=== PATIENT | female | born 1965 | race Caucasian/White ===

== ENCOUNTER → 2016-09-01 | Outpatient (CLI) | payer BC ==
[~2016-09-01] MED LIST: NIRAVAM; PRED20TA PO
--- NOTE | 2016-09-01 15:11 | MAMMOGRAPHY REPORT ---
UNILATERAL LEFT DIGITAL DIAGNOSTIC MAMMOGRAM TOMOSYNTHESIS AND TARGETED LEFT ULTRASOUND: 09/01/2016 CLINICAL HISTORY: 51-year-old woman called back from screening mammography for a 6 mm nodular asymme try and 7 mm lobulated mass in the left breast. TECHNIQUE: Spot compression left CC and MLO 2-D digital and tomosynthesis images were obtained. The left MLO view is mislabeled as left CC. COMPARISON: Comparison is made to exams dated: 08/21/2016 mammogram, 08/20/2015 mammogram, 08/14/20 13 mammogram, 08/17/2014 mammogram, 01/13/2012 ultrasound, and 12/24/2010 mammogram - [facility]. BREAST COMPOSITION: There are scattered areas of fibroglandular density in the left breast. FINDINGS: The spot compression CC view of the left breast including tomosynthesis images demonstrate s partial effacement of the 6 mm nodular asymmetry along the posterior nipple line. There is persis tence of a circumscribed oval 7.4 x 3.9 mm mass in the lateral anterior breast. No focal architectu ral distortion or cluster of suspicious microcalcifications. There is a stable susy-shaped metallic biopsy marker in the anterior left breast pain Real-time high-resolution ultrasound was performed in the lateral left breast including the 12:00 an d 6:00 axes. In the 12:00 axis, 27 m from the nipple, there is a microlobulated oval hypoechoic mas s which could represent a Kum[place] located cyst, focal duct ectasia or a normal fat lobule. This measu res 4.2 x 2.0 x 4.6 mm. There is an oval circumscribed anechoic cyst in the 12:30 left breast, 1 cm from the nipple, measuring 5.6 x 2.9 x 6.1 mm. This may possibly correlate with the circumscribed oval mammographic mass. In the 5:00 left breast, 3 cm from the nipple, another oval circumscribed a nechoic cystic appearing mass is identified measuring 4.6 x 2.2 x 2.3 mm. No suspicious solid mass is seen. IMPRESSION: ACR-BI-RADS CATEGORY 3: PROBABLY BENIGN, TARGETED ULTRASOUND ACR-BI-RADS CATEGORY 3: NM OBABLY BENIGN There are scattered cysts and possible duct ectasia within the left breast on ultrasound. One of th e cysts is thought to correlate with the persistent circumscribed oval mammographic mass in the late ral anterior breast. Overall, these findings most likely represent benign fibrocystic changes and t here is no evidence of a suspicious sonographic mass. Nevertheless, a short interval follow-up left mammogram including tomosynthesis images and repeat targeted ultrasound is recommended to ensure st ability in 6 months. These results and recommendations were discussed with the patient at the time of the exam. Approximately 10% of breast cancers are not detected with mammography. A negative mammographic repor t should not delay biopsy if a clinically suggestive mass is present. Valerie King M.D. ay/:09/01/2016 10:56:13 [employer] Software Developer: Pricila ACEVEDO(Kerri)(M), [facility] letter sent: Follow Up Recommended 3 BI-RADS Code: ACR-BI-RADS Category 3: Probably Benign Ultrasound BI-RADS: ACR-BI-RADS Category 3: P robably Benign
== END | disposition home or self-care (01) ==
LOC: C.MAMM 08:25
PROVIDERS: ATTEND Obstetrics & Gynecology
DX: R92.8 Other abnormal and inconclusive findings on diagnostic imaging of breast (principal); N63 Unspecified lump in breast

== ENCOUNTER → 2017-03-01 | Outpatient (CLI) | payer BC ==
--- NOTE | 2017-03-01 12:37 | MAMMOGRAPHY REPORT ---
UNILATERAL LEFT DIGITAL DIAGNOSTIC MAMMOGRAM TOMOSYNTHESIS WITH CAD AND TARGETED LEFT ULTRASOUND: 03/01 CLINICAL HISTORY: 51-year-old woman following up for left breast mammographic nodular asymmetries tho ught to correlate with cysts and fibrocystic changes on ultrasound. She has a history of prior benig n stereotactic biopsy in the left breast. TECHNIQUE: Left breast tomosynthesis in addition to standard 2D mammography was performed. A spot co mpression left CC view 2-D digital and tomosynthesis images were also obtained. Current study was al so evaluated with a Computer Aided Detection (CAD) system. COMPARISON: Comparison is made to exams dated: 09/01/2016 ultrasound, 09/01/2016 mammogram, 08/21/2016 m ammogram, 08/20/2015 mammogram, 08/17/2014 mammogram, and 09/05/2013 ultrasound - [facility]. BREAST COMPOSITION: There are scattered areas of fibroglandular density in the left breast. FINDINGS: There is a stable susy-shaped metallic biopsy marker in the lower inner quadrant of the left breast. A previously observed 6.4 x 4.1 mm oval circumscribed mass in the lateral middle one third of the left breast, and a 5.3 mm nodular asymmetry in the slightly medial middle one third of the lef t breast are no longer identified. This confirms benign fluctuating cysts or overlapping fibroglandu lar tissue. There is an increasingly conspicuous 4.2 mm nodular asymmetry in the posterior left rebeca st, 6.3 cm distal to the nipple along the posterior nipple line on the CC view. This is not identifi ed on the MLO view. An additional spot compression view was obtained in this area which demonstrates partial effacement of the nodular asymmetry suggesting it could represent a tortuous blood vessel. No focal area of architectural distortion or new suspicious mass or calcifications are identified. Targeted ultrasound was performed in the left breast 11:00 through 1:00, retroareolar and 5:00 throug h 7:00 axes. In the 6:00 left breast, 1 cm from the nipple, there is a small anechoic cyst versus 2 abutting cysts measuring 3.9 x 1.7 x 3.9 mm in conglomerate. In the 12:00 left breast, 2 cm from the nipple, an oval parallel circumscribed isoechoic benign appearing mass versus normal fat lobule is a gain seen in the 12:00 left breast, 2 cm from the nipple, measuring 3.7 x 1.6 x 4.2 mm. This previou sly measured 4.2 x 2.0 x 4.6 mm and is unchanged. No other suspicious solid or cystic mass is seen, including within the retroareolar left breast. IMPRESSION: ACR-BI-RADS CATEGORY 3: PROBABLY BENIGN, TARGETED ULTRASOUND ACR-BI-RADS CATEGORY 3: PRO BABLY BENIGN 1. Nodular asymmetries and circumscribed masses in the left breast middle to anterior depth have decr eased and fluctuated comparing to the prior mammograms, confirming benignity. However, there is an i ncreasingly conspicuous 4 mm nodular asymmetry in the posterior left breast, along the posterior nipp le line on the CC view without suspicious sonographic correlate. Although this could represent a tor tuous vessel or benign cyst, another short interval follow-up diagnostic left mammogram and possible repeat ultrasound is recommended to ensure stability in 6 months. 2. A benign-appearing isoechoic mass versus fat lobule in the 12:00 left breast, 2 cm from the nippl e is unchanged in size and appearance compared to the prior ultrasound. Another six-month targeted l eft breast ultrasound is recommended to ensure at least one year of stability. Annual right mammogra phy will also be due at that time. These results and recommendations were discussed with the patient at the time of the exam. Approximately 10% of breast cancers are not detected with mammography. A negative mammographic report should not delay biopsy if a clinically suggestive mass is present. Valerie King M.D. ay/:03/01/2017 12:23:15 Lifeguard: Alma Delia ACEVEDO(Kerri)(M), [facility] letter sent: Follow Up Recommended 3 BI-RADS Code: ACR-BI-RADS Category 3: Probably Benign Ultrasound BI-RADS: ACR-BI-RADS Category 3: Pr obably Benign
== END | disposition home or self-care (01) ==
LOC: C.MAMM 10:19
PROVIDERS: ATTEND Obstetrics & Gynecology
DX: N64.89 Other specified disorders of breast (principal); N63 Unspecified lump in breast

== ENCOUNTER → 2017-09-02 | Outpatient (CLI) | payer BC ==
--- NOTE | 2017-09-02 12:47 | MAMMOGRAPHY REPORT ---
BILATERAL DIGITAL DIAGNOSTIC MAMMOGRAM TOMOSYNTHESIS WITH CAD AND TARGETED LEFT ULTRASOUND: 09/02/2017 CLINICAL HISTORY: Six-month follow-up of the left breast. Due for routine mammography of the right b reast. The patient reports no current complaints. TECHNIQUE: Breast tomosynthesis in addition to standard 2D mammography was performed. Current study was also evaluated with a Computer Aided Detection (CAD) system. Bilateral CC and MLO 2-D and tomosy nthesis images were obtained. COMPARISON: Comparison is made to exams dated: 03/01/2017 ultrasound, 03/01/2017 mammogram, 09/01/2016 jocelyn mogram, 08/21/2016 mammogram, 09/01/2016 ultrasound, and 08/20/2015 mammogram - [facility]. BREAST COMPOSITION: There are scattered areas of fibroglandular density in both breasts. FINDINGS: There are no suspicious masses, calcifications, or areas of architectural distortion noted in either breast. There has been no significant interval change compared to prior exams. Small flu ctuating circumscribed benign-appearing masses are again noted bilaterally, which are considered dalton gn given the multiplicity and bilaterality and likely represent cysts. Pressure circumscribed and pa rtially obscured 6 mm mass in the right retroareolar breast posteriorly on the cc view is stable comp ared to prior exams including the August 2013 exam and likely represents a cyst. A biopsy marker cl ip is again noted within the left lower inner quadrant. Targeted ultrasound was performed of the area of the previously seen left breast mass. In the left b reast at 12:00, 2 cm from the nipple, again noted is an oval parallel circumscribed isoechoic benign- appearing 4 x 4 x 2 mm mass. This is stable dating back to at least the August 2016 exam and is con sidered benign given the morphology and stability. 2 adjacent benign simple cysts measuring 2 and 1 mm are seen within the left 6:00 breast, 2 cm from the nipple. 2 anechoic benign simple cysts measur ing 2 mm each are also seen within the left 12 o'clock periareolar breast. No suspicious solid vania s are seen. IMPRESSION: ACR BI-RADS CATEGORY 2: BENIGN, TARGETED ULTRASOUND ACR BI-RADS CATEGORY 2: BENIGN There is no mammographic or targeted sonographic evidence of malignancy. A 1 year screening mammogram is recommended. The patient has been verbally notified of the results. Approximately 10% of breast cancers are not detected with mammography. A negative mammographic report should not delay biopsy if a clinically suggestive mass is present. Latosha Duggan M.D. ah/:09/02/2017 08:44:22 Shipping Specialist: Alma Delia ACEVEDO(Kerri)(Caitlin), [facility] letter sent: Normal 1/2 BI-RADS Code: ACR BI-RADS Category 2: Benign Ultrasound BI-RADS: ACR BI-RADS Category 2: Benign
== END | disposition home or self-care (01) ==
LOC: C.MAMM 08:09
PROVIDERS: ATTEND Nurse Practitioner Family
DX: R92.8 Other abnormal and inconclusive findings on diagnostic imaging of breast (principal)